=== PATIENT | female | born 1995 | race African-American/Black ===

== ENCOUNTER 2022-06-23 00:15 | Emergency (ER) | payer OTHER ==
[2022-06-23 02:45] LABS: Absolute Lymphocytes (CBC) 1.3 K/uL (0.7-4.9); Lymphocytes % 23.8 % (15.3-44.8); MCV 83.8 fL (80-100); MPV 9.3 fL (7.6-11.3); RBC Red Blood Cell Count 3.46 M/uL (3.86-4.86)
[2022-06-23 02:47] LABS: Urine Blood Trace-intact (Negative); Urine Glucose Negative (Negative); Urine Protein Trace (Negative); Urine Specific Gravity >=1.030 (1.005-1.030)
[2022-06-23 02:50] LABS: Urine Bacteria <20 /HPF (<20); Urine Mucus Slight /HPF (None Seen); Urine WBC Clump Rare /HPF (None Seen)
[2022-06-23 03:02] LABS: Potassium 3.2 mmol/L (3.5-5.1)
--- NOTE | 2022-06-23 03:31 | ER ---
Nurse's Notes [facility] Name: Torie Cottrell Age: 27 yrs Sex: Female : 1995 Arrival Date: 06/23/2022 Time: 00:19 Bed 25 Private MD: Diagnosis: Threatened ;Intrauterine , 21 weeks 5 days, Presentation: 06/23 00:31 Chief complaint: Patient states: "I am having a little cramping and light stopping. tw5 This started last night. It hasn't gotten any heavier. I have been having a headache all day today.". Coronavirus screen: Vaccine status: Patient reports being unvaccinated. Ebola Screen: Patient negative for fever greater than or equal to 101.5 degrees Fahrenheit, and additional compatible Ebola Virus Disease symptoms Patient denies exposure to infectious person. Patient denies travel to an Ebola-affected area in the 21 days before illness onset. Initial Sepsis Screen: Does the patient meet any 2 criteria? No. Patient's initial sepsis screen is negative. Does the patient have a suspected source of infection? No. Patient's initial sepsis screen is negative. Risk Assessment: Do you want to hurt yourself or someone else? Patient reports no desire to harm self or others. Onset of symptoms was June 22, 2022. 00:31 Method Of Arrival: Ambulatory tw5 00:31 Acuity: FERNANDEZ 3 tw5 Triage Assessment: 00:32 General: Appears in no apparent distress. Behavior is calm, cooperative, appropriate tw5 for age. Pain: Pain currently is 1 out of 10 on a pain scale. : Reports vaginal bleeding that is light flow. 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 - Social history:: Smoking status: Patient denies any tobacco usage or history of. Screenin:59 Abuse screen: Denies threats or abuse. Nutritional screening: No deficits noted. vc1 Tuberculosis screening: No symptoms or risk factors identified. Fall Risk None identified. Assessment: 00:45 Reassessment: See triage assessment. vc1 01:30 Reassessment: No changes from previously documented assessment. Patient and/or family vc1 updated on plan of care and expected duration. Pain level reassessed. Patient is alert, oriented x 3, equal unlabored respirations, skin warm/dry/pink. 02:30 Reassessment: No changes from previously documented assessment. Patient and/or family vc1 updated on plan of care and expected duration. Pain level reassessed. Patient is alert, oriented x 3, equal unlabored respirations, skin warm/dry/pink. 03:57 Reassessment: No changes from previously documented assessment. Patient and/or family vc1 updated on plan of care and expected duration. Pain level reassessed. Patient is alert, oriented x 3, equal unlabored respirations, skin warm/dry/pink. Vital Signs: 00:31 BP 107 / 68; Pulse 83; Resp 18; Temp 98.7; Pulse Ox 100% ; Weight 77.11 kg; Height 5 tw5 ft. 11 in. (180.34 cm); Pain 1/10; 02:00 BP 92 / 80; Pulse 66; Resp 21; Pulse Ox 100% ; vc1 03:00 BP 93 / 68; Pulse 78; Resp 17; Pulse Ox 100% on R/A; vc1 00:31 Body Mass Index 23.71 (77.11 kg, 180.34 cm) tw5 ED Course: 00:19 Patient arrived in ED. bp1 00:32 Triage completed. tw5 00:32 Arm band placed on. tw5 00:36 Richard Carvajal MD is Attending Physician. kdr 01:00 Patient has correct armband on for positive identification. Bed in low position. Call vc1 light in reach. Client placed on continuous cardiac and pulse oximetry monitoring. NIBP monitoring applied. 02:45 Carole Burnett RN is Primary Nurse. vc1 02:45 Urine Microscopic Only Sent. vc1 03:59 No provider procedures requiring assistance completed. IV discontinued, intact, vc1 bleeding controlled, No redness/swelling at site. Pressure dressing applied. Administered Medications: 03:56 Drug: Nitrofurantoin 100 mg Route: PO; vc1 03:56 Follow up: Response: No adverse reaction; Medication administered at discharge. vc1 Medication: 04:00 VIS not applicable for this client. vc1 Point of Care Testing: Urine : 01:00 hCG Reading: Positive; Control Reading: Positive; vc1 Outcome: 03:31 Discharge ordered by . kdr 03:59 Discharged to home ambulatory. vc1 03:59 Condition: good 03:59 Discharge instructions given to patient, Instructed on discharge instructions, follow up and referral plans. medication usage, Demonstrated understanding of instructions, follow-up care, medications, Prescriptions given X 1. 04:00 Patient left the ED. vc1 Signatures: Richard Carvajal MD MD kdr [place], Brittany bp1 [place], [facility] Carole Burnett RN RN vc1
--- NOTE | 2022-06-23 03:31 | EDPHYS ---
Physician Documentation [facility] [place], [place] Name: Torie Cottrell Age: 27 yrs Sex: Female : 1995 Arrival Date: 06/23/2022 Time: 00:19 Bed 25 Private MD: ED Physician iRchard Carvajal HPI: 06/24 02:29 This 27 yrs old Black Female presents to ER via Ambulatory with complaints of Vaginal kdr Bleeding, + Preg <12wks. 02:30 This 27 yrs old Black Female presents to ER via Ambulatory with complaints of Vaginal kdr Bleeding, + Preg <12wks. 02:30 Patient states that the previous evening she started to have some light lower abdominal kdr cramping and some spotting. It has not worsened since and is perhaps slackened to bed. Subsequently she has had a headache all day.. 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 - Social history:: Smoking status: Patient denies any tobacco usage or history of. ROS: 06/24 02:30 Constitutional: Negative for fever, chills, and weight loss, Eyes: Negative for injury, kdr pain, redness, and discharge, Neck: Negative for injury, pain, and swelling, Cardiovascular: Negative for chest pain, palpitations, and edema, Respiratory: Negative for shortness of breath, cough, wheezing, and pleuritic chest pain, Abdomen/GI: Negative for abdominal pain, nausea, vomiting, diarrhea, and constipation, Back: Negative for injury and pain, : Negative for injury, bleeding, discharge, and swelling, MS/Extremity: Negative for injury and deformity, Skin: Negative for injury, rash, and discoloration, Neuro: Negative for headache, weakness, numbness, tingling, and seizure activity. Psych: Negative for depression, anxiety, suicide ideation, homicidal ideation, and hallucinations, Allergy/Immunology: Negative for hives, rash, and allergies, Endocrine: Negative for neck swelling, polydipsia, polyuria, polyphagia, and marked weight changes, Hematologic/Lymphatic: Negative for swollen nodes, abnormal bleeding, and unusual bruising. Exam: 02:30 Constitutional: This is a well developed, well nourished patient who is awake, alert, kdr and in no acute distress. Head/Face: Normocephalic, atraumatic. Eyes: Pupils equal round and reactive to light, extra-ocular motions intact. Lids and lashes normal. Conjunctiva and sclera are non-icteric and not injected. Cornea within normal limits. Periorbital areas with no swelling, redness, or edema. Neck: Trachea midline, no thyromegaly or masses palpated, and no cervical lymphadenopathy. Supple, full range of motion without nuchal rigidity, or vertebral point tenderness. No Meningismus. Chest/axilla: Normal chest wall appearance and motion. Nontender with no deformity. No lesions are appreciated. Cardiovascular: Regular rate and rhythm with a normal S1 and S2. No gallops, murmurs, or rubs. Normal PMI, no JVD. No pulse deficits. Respiratory: Lungs have equal breath sounds bilaterally, clear to auscultation and percussion. No rales, rhonchi or wheezes noted. No increased work of breathing, no retractions or nasal flaring. Abdomen/GI: Soft, non-tender, with normal bowel sounds. No distension or tympany. No guarding or rebound. No evidence of tenderness throughout. Back: No spinal tenderness. No costovertebral tenderness. Full range of motion. Skin: Warm, dry with normal turgor. Normal color with no rashes, no lesions, and no evidence of cellulitis. MS/ Extremity: Pulses equal, no cyanosis. Neurovascular intact. Full, normal range of motion. Neuro: Awake and alert, GCS 15, oriented to person, place, time, and situation. Cranial nerves II-XII grossly intact. Motor strength 5/5 in all extremities. Sensory grossly intact. Cerebellar exam normal. Normal gait. Psych: Awake, alert, with orientation to person, place and time. Behavior, mood, and affect are within normal limits. Vital Signs: 06/23 00:31 BP 107 / 68; Pulse 83; Resp 18; Temp 98.7; Pulse Ox 100% ; Weight 77.11 kg; Height 5 tw5 ft. 11 in. (180.34 cm); Pain /; 02:00 BP 92 / 80; Pulse 66; Resp 21; Pulse Ox 100% ; vc1 03:00 BP 93 / 68; Pulse 78; Resp 17; Pulse Ox 100% on R/A; vc1 00:31 Body Mass Index 23.71 (77.11 kg, 180.34 cm) tw5 MDM: 03:31 Patient medically screened. kdr 06/24 02:30 Data reviewed: vital signs, nurses notes, lab test result(s). Counseling: I had a kdr detailed discussion with the patient and/or guardian regarding: the historical points, exam findings, and any diagnostic results supporting the discharge/admit diagnosis, lab results, radiology results, the need for outpatient follow up. 06/23 00:26 Order name: Urine Microscopic Only snw 06/23 00:37 Order name: Abo/rh Typing kdr 06/23 00:37 Order name: Basic Metabolic Panel kdr 06/23 00:37 Order name: CBC with Diff kdr 06/23 00:37 Order name: Quantitative Hcg kdr 06/23 02:47 Order name: CBC with Automated Diff; Complete Time: 03:28 EDMS 06/23 00:38 Order name: US OB Limited kdr 06/23 02:48 Order name: Urine Dipstick-Ancillary; Complete Time: 03:28 EDMS 06/23 03:03 Order name: Basic Metabolic Panel; Complete Time: 03:28 EDMS 06/23 03:04 Order name: Urine Microscopic Only; Complete Time: 03:28 EDMS 06/23 03:18 Order name: HCG, Quantitative; Complete Time: 03:28 EDMS 06/23 03:25 Order name: ABO/RH typing; Complete Time: 03:28 EDMS 06/23 00:26 Order name: Urine Dipstick-Ancillary (obtain specimen); Complete Time: 02:45 snw 06/23 00:26 Order name: Urine Test (obtain specimen); Complete Time: 02:45 snw 06/23 00:37 Order name: IV Saline Lock; Complete Time: 02:45 kdr 06/23 00:37 Order name: Labs collected and sent; Complete Time: 02:45 kdr 06/23 00:37 Order name: NPO; Complete Time: 02:45 kdr Administered Medications: 06/23 03:56 Drug: Nitrofurantoin 100 mg Route: PO; vc1 03:56 Follow up: Response: No adverse reaction; Medication administered at discharge. vc1 Point of Care Testing: Urine : 01:00 hCG Reading: Positive; Control Reading: Positive; vc1 Disposition Summary: 06/23/22 03:31 Discharge Ordered Location: Home kdr Problem: new kdr Symptoms: have improved kdr Condition: Stable kdr Diagnosis - Threatened kdr - Intrauterine , 21 weeks 5 days, kdr Followup: kdr - With: Private Physician - When: 2 - 3 days - Reason: If symptoms return, Further diagnostic work-up, Recheck today's complaints, Continuance of care, Re-evaluation by your physician Discharge Instructions: - Discharge Summary Sheet kdr - Threatened Miscarriage kdr Forms: - Medication Reconciliation Form kdr - Thank You Letter kdr - Antibiotic Education kdr Prescriptions: - Macrobid 100 mg Oral Capsule - take 1 capsule by ORAL route every 12 hours for 7 days; 14 capsule; Refills: 0, kdr Product Selection Permitted Signatures: Dispatcher [employer] EDMS Richard Carvajal MD MD kdr Sara Campos, TALCER-C TALCER-Cris Johnson tw5 Carole Burnett RN RN vc1
[2022-06-23] MEDS ORDERED: NITROFURAN MACRO 100 MG CAP PO ONE (03:48)
[2022-06-23 04:06] VITALS: TEMP 98.7; O2SAT 100
[2022-06-23 04:08] VITALS: BP 93/68
--- NOTE | 2022-06-24 13:41 | RAD REPORT ---
EXAM DESCRIPTION: US - OB Limited - 06/23/2022 1:03 am CLINICAL HISTORY: 27 years Female Abd pain COMPARISON: None TECHNIQUE: Real-time sonography of the fetus was performed. Limited study was performed. FINDINGS: Single viable fetus is identified. Presentation not confirmed. head not well visuali zed. Heart rate was 1 56 bpm. Cervix measured 4.1 cm and appeared closed. Placenta is anterior with n o definite placenta previa. Femur length measure 3.7 cm corresponding with a age of 21 weeks 5 days. This indicates an EDC of October 29, 2022. Four-chamber heart identified. Echogenic focus within the heart thought to represent normal variant. IMPRESSION: Limited study. Single viable 21 week 5 day intrauterine fetus. Anterior placenta with no evidence for placenta previa. Limited evaluation anatomy. presentation not confirmed. Fo llow-up imaging suggested. Electronically signed by: Margarita Capone MD 06/23/2022 1:21 AM CDT Due to temporary technical issues with the PACS/Fluency reporting system, reports are being signed by the in house radiologists without review as a courtesy to insure prompt reporting. The interpreting radiologist is fully responsible for the content of the report.
== END 2022-06-23 04:00 | disposition home or self-care (01) ==
LOC: ER 00:15
DX: O20.0 Threatened abortion (principal); Z3A.21 21 weeks gestation of pregnancy; O98.712 Human immunodeficiency virus [HIV] disease complicating pregnancy, second trimester; B20 Human immunodeficiency virus [HIV] disease; Z79.899 Other long term (current) drug therapy
CPT/HCPCS: 36415; 76815; 80048; 81003; 81015; 84702; 85025; 86900; 86901; 87086; 87088; 99283